=== PATIENT | male | born 1980 | race Caucasian/White ===

== ENCOUNTER 2017-11-15 16:22 | Inpatient (IN) | payer SELFPAY ==
[2017-11-15] MEDS ORDERED: CEFAZOLIN 1 GM/DEXTROSE/50 ML BAG IV ONE (16:27)
[2017-11-15] MEDS ORDERED: TDAP ADULT 0.5 ML INJ (BOOSTRIX) IM ONE (16:33)
[2017-11-15] MEDS ORDERED: IOPAMIDOL (ISOVUE 370) 100 ML BTL IV ONE (16:34)
[2017-11-15 16:40] LABS: PLATELET COUNT 327 10^3/uL (150-400)
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
[2017-11-15] MEDS ORDERED: BUPIVACAINE 0.5% 30 ML SDV ONE (16:56)
[2017-11-15] MEDS ORDERED: fentaNYL 100 MCG/2 ML INJ ONE ×2 (17:07→17:18)
[2017-11-15] MEDS ORDERED: KETAMINE 200 MG/20 ML VIAL ONE (17:08)
[2017-11-15] MEDS ORDERED: fentaNYL 100 MCG/2 ML INJ IVP ONE (17:09)
[2017-11-15] MEDS ORDERED: ceFAZolin 2 GM in NS 100 ML IV ONE (17:09)
[2017-11-15] MEDS ORDERED: NS 1,000 ML IV ONE (17:10)
[2017-11-15] MEDS ORDERED: MIDAZOLAM 2 MG/2 ML VIAL IVP ONE (17:11)
[2017-11-15] MEDS ORDERED: HYDROCODONE/APAP 5/325 TAB PO PRN ×2 (17:11→18:44)
[2017-11-15] MEDS ORDERED: MIDAZOLAM 2 MG/2 ML VIAL ONE (17:11)
[2017-11-15] MEDS ORDERED: ONDANSETRON 4 MG/2 ML VIAL IVP PRN (17:11)
[2017-11-15] MEDS ORDERED: NALOXONE HCL 0.4 MG/ML INJ IVP PRN ×2 (17:11→18:44)
[2017-11-15 17:13] LABS: INR 0.97 (0.83-1.16); PROTIME(PATIENT) 13.1 SEC (12.0-15.0)
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
[2017-11-15] MEDS ORDERED: PROPOFOL 200 MG/20 ML VIAL ONE ×2 (17:18)
[2017-11-15] MEDS ORDERED: LIDOCAINE 2% 5 ML SDV ONE (17:18)
[2017-11-15] MEDS ORDERED: ROCURONIUM 50 MG/5 ML VIAL ONE (17:18)
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
[2017-11-15] MEDS ORDERED: DEXAMETHASONE 4 MG/ML VIAL ONE (17:31)
[2017-11-15] MEDS ORDERED: HYDROmorphONE/DILAUDID 2 MG/ML INJ ONE (17:56)
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
[2017-11-15] MEDS ORDERED: SUGAMMADEX SODIUM 200 MG/2 ML VIAL IVP ONE (18:09)
[2017-11-15] MEDS ORDERED: KETOROLAC 30 MG/1 ML SDV ONE (18:10)
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
[2017-11-15] MEDS ORDERED: MEPERIDINE 25 MG/0.5 ML AMP IVP PRN (18:44)
[2017-11-15] MEDS ORDERED: ALBUTEROL 3 ML DEYVIAL IH PRN (18:44)
[2017-11-15] MEDS ORDERED: PROMETHAZINE HCL 25 MG/ML INJ IVP PRN (18:44)
[2017-11-15] MEDS ORDERED: oxyCODONE IR 5 MG TAB PO PRN (18:44)
[2017-11-15] MEDS ORDERED: fentaNYL 100 MCG/2 ML INJ IVP PRN (18:44)
[2017-11-15] MEDS ORDERED: DIAZEPAM 5 MG/ML 1 ML SYR IVP PRN (18:44)
[2017-11-15] MEDS ORDERED: HYDROmorphONE/DILAUDID 2 MG/ML INJ IVP PRN (18:44)
--- NOTE | 2017-11-15 18:45 | POSTANESTH ---
Post Anesthetic Evaluation Cardiovascular Status: Normal, Stable Respiratory Status: Normal, Stable Level of Consciousness/Mental Status: Can Participate in Eval Pain Control: Adequate, Prn Tx Ordered Nausea/Vomiting Control: Adequate, Prn Tx Ordered Complications Possibly Related to Anesthesia: None Noted
[2017-11-15] MEDS ORDERED: MEPERIDINE 25 MG/0.5 ML AMP ONE (18:52)
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
[2017-11-15] MEDS: KETOROLAC 15 MG/1 ML SDV IVP SCH ×2 (20:09→23:56)
[2017-11-15] MEDS: ERTAPENEM 1 GM in NS 100 ML IV SCH (20:10)
[2017-11-16 04:48] LABS: PLATELET COUNT 268 10^3/uL (150-400)
[2017-11-16] MEDS: KETOROLAC 15 MG/1 ML SDV IVP SCH ×3 (05:30→17:34)
--- NOTE | 2017-11-16 08:31 | TRAUMAPNT ---
Trauma Tertiary Progress Note New Findings: Complaining more of left shoulder. Suspect contusion/possible AC seperation Assessment/Plan: POD#1 PAD#1 11/16/2017 Assessment: Pain well controlled. Afebrile, WBC down /HCT stable, Irrigating wound vac working. C/o left shoulder pain Plan: Left shoulder x-ray series Continue wound vac and explore possibility of out patient wound vac care Will try to mobilize today Subjective: My shoulder pain became more noticable this morning Objective: Vital Signs Temp Pulse Resp BP Pulse Ox 36.9 C 92 18 140/97 H 97 11/16/17 04:00 11/16/17 04:00 11/16/17 04:00 11/16/17 04:00 11/16/17 04:00 Laboratory Results 11/16/17 04:35 11/15/17 11/16/17 11/17/17 05:59 05:59 05:59 Intake Total 3180 Output Total 400 1000 Balance 2780 -1000 PT 13.1 SEC (12.0-15.0) 11/15/17 16:30 INR 0.97 (0.83-1.16) 11/15/17 16:30 Physical Exam - Physical Exam General Appearance: WD/WN, alert, mild distress Neck: non-tender, full range of motion, supple, normal inspection Respiratory: chest non-tender, lungs clear, normal breath sounds Cardiac/Chest: regular rate, rhythm Abdomen: normal bowel sounds, non-tender, soft Male Genitalia: deferred Rectal: deferred Back: Normal inspection Skin: normal color, warm/dry Neuro/Psych: no motor/sensory deficits, alert, normal mood/affect, oriented x 3 Time Spent w/Patient (minutes): 25
[2017-11-16] MEDS: ERTAPENEM 1 GM in NS 100 ML IV SCH (09:10)
[2017-11-16] MEDS: ENOXAPARIN 40 MG/0.4 ML SYR SC SCH (09:14)
[2017-11-17] MEDS ORDERED: DIAZEPAM 5 MG TAB PO ONE (00:15)
[2017-11-17] MEDS: KETOROLAC 15 MG/1 ML SDV IVP SCH ×4 (00:18→18:05)
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
[2017-11-17] MEDS: ENOXAPARIN 40 MG/0.4 ML SYR SC SCH (09:37)
[2017-11-17] MEDS: ERTAPENEM 1 GM in NS 100 ML IV SCH (09:38)
--- NOTE | 2017-11-17 14:47 | ASMTCMCOM ---
CM Note CM Note Notes: OT/PT rec home, [employer] rec home/follow up call. Financial counseling met w pt today. Pt likely needs wound vac at d/c, case making machine operator/Karon Almonte alerted to start application. Unknown if pt will need IV antibiotics at d/c. Pt has no payer source for d/c needs. CM to follow. Date Signed: 11/17/2017 02:46 PM Electronically Signed By:CASS Rosas
--- NOTE | 2017-11-17 18:36 | TRAUMAPN ---
Trauma Progress Note Assessment/Plan: POD#1 PAD#1 11/16/2017 Assessment: Pain well controlled. Afebrile, WBC down /HCT stable, Irrigating wound vac working. C/o left shoulder pain Plan: Left shoulder x-ray series Continue wound vac and explore possibility of out patient wound vac care Will try to mobilize today POD#2 PAD#2 Assessment: Pain well controlled. Notes some discomfort in left shoulder and left lateral thigh due to contusions. Plan: Wound vac change to outpatient mode tomorrow by wound care team. Subjective: I've moved my bowels and passed gas Objective: Vital Signs Temp Pulse Resp BP Pulse Ox 36.7 C 87 15 132/65 H 96 11/17/17 16:00 11/17/17 16:00 11/17/17 16:00 11/17/17 16:00 11/17/17 16:00 Laboratory Results 11/17/17 04:15 11/17/17 04:15 11/16/17 11/17/17 11/18/17 05:59 05:59 05:59 Intake Total 3180 500 Output Total 400 1250 Balance 2780 -750 PT 13.1 SEC (12.0-15.0) 11/15/17 16:30 INR 0.97 (0.83-1.16) 11/15/17 16:30 - C-Spine Clearance Cervical Spine Cleared: Yes Provider who Cleared Cervical Spine: Dr. Mejia Physical Exam - Physical Exam General Appearance: WD/WN, alert, no apparent distress Neck: non-tender, full range of motion, supple Respiratory: chest non-tender, lungs clear, normal breath sounds Cardiac/Chest: regular rate, rhythm Abdomen: normal bowel sounds, non-tender, soft Male Genitalia: deferred Rectal: deferred Back: Normal inspection Skin: normal color, warm/dry Extremities: other (Contusion over left shoulder and left lateral thigh - stable ) Neuro/Psych: no motor/sensory deficits, alert, normal mood/affect, oriented x 3
[2017-11-18] MEDS: KETOROLAC 15 MG/1 ML SDV IVP SCH ×4 (01:30→17:35)
[2017-11-18] MEDS ORDERED: HYDROmorphONE/DILAUDID 1 MG/ML INJ IVP ONE (08:15)
[2017-11-18] MEDS ORDERED: LORazepam 2 MG/ML INJ IVP ONE (08:15)
[2017-11-18] MEDS: ERTAPENEM 1 GM in NS 100 ML IV SCH (10:03)
[2017-11-18] MEDS ORDERED: HYDROmorphONE/DILAUDID 1 MG/ML INJ ONE (10:20)
--- NOTE | 2017-11-18 11:45 | TRAUMAPN ---
Trauma Progress Note Assessment/Plan: POD#1 PAD#1 11/16/2017 Assessment: Pain well controlled. Afebrile, WBC down /HCT stable, Irrigating wound vac working. C/o left shoulder pain Plan: Left shoulder x-ray series Continue wound vac and explore possibility of out patient wound vac care Will try to mobilize today POD#2 PAD#2 Assessment: Pain well controlled. Notes some discomfort in left shoulder and left lateral thigh due to contusions. Plan: Wound vac change to outpatient mode tomorrow by wound care team. POD#3 PAD#3 Assessment: Wound vac changed with Dr. Mejia and wound vac team today. The subcutaneous tract is smaller. Left shoulder and left thigh contusions stable Plan: Continue wound vac as outpatient with follow up with Dr. Mejia on Thursday Subjective: My left shoulder and thigh were more stiff this AM but loosened up with walking Objective: Vital Signs Temp Pulse Resp BP Pulse Ox 36.9 C 81 15 129/77 H 96 11/18/17 07:26 11/18/17 07:26 11/18/17 07:26 11/18/17 07:26 11/18/17 07:26 Laboratory Results 11/17/17 04:15 11/17/17 04:15 11/17/17 11/18/17 11/19/17 05:59 05:59 05:59 Intake Total 500 Output Total 1250 250 Balance -750 -250 PT 13.1 SEC (12.0-15.0) 11/15/17 16:30 INR 0.97 (0.83-1.16) 11/15/17 16:30 - C-Spine Clearance Cervical Spine Cleared: Yes Provider who Cleared Cervical Spine: Dr. Mejia Physical Exam - Physical Exam General Appearance: WD/WN, alert, no apparent distress Neck: non-tender, full range of motion, supple Respiratory: chest non-tender, lungs clear, normal breath sounds Cardiac/Chest: regular rate, rhythm Abdomen: normal bowel sounds, non-tender, soft Male Genitalia: deferred Rectal: deferred Back: Normal inspection Skin: normal color, warm/dry, other (Wound vac replaced earlier today) Neuro/Psych: no motor/sensory deficits, alert, normal mood/affect, oriented x 3 Time Spent w/Patient (minutes): 15
--- NOTE | 2017-11-18 11:46 | WOCRNPDOC ---
WOCRArin Advanced Assessment Note - Skin Integrity Problem, Advanced Assess Right Upper Leg Surgical Wound/Incision Dressing Type: Black Vac Foam (kauffman foam x [address] Mejia ), Wound Vac Dressing Description: Clean/Dry, Intact Exudate Amount: Moderate Exudate Characteristic(s): Serosanguinous Integumentary Issue Intervention: Dressing Changed Buddy Wound Tissue: Swollen Buddy Wound Swelling: Moderate Wound Bed Constitution: Granulation Tissue (40%), Tunneling (9 oclock 9 cm toward the midline and 12 oclock 3.8 cm lateraly), Muscle, Subcutaneous Fat Wound Edges: Well Defined Site Odor: None Site Measurement - Head-to-Toe Length X Width X Depth (cm): 7x13x2 Skin Integrity Problem Comment: Veraflo d/c'd. Wound cleansed with ns and gauze after clipping buddy wound hair and applying skin prep. Tunnels explored and after conversation with Dr. Klein it was decided not to pack the 9 oclock tunnel fully in the hopes the distal portion wound close down. One piece of black simplace foam cut and placed in each tunnel. Then 4 more pieces were placed over wound bed. Totaling 6 pieces of medium black simplace. Vac was restarted at -125 mm Hg continuous suction without leaks. Patient tolerated proceedure well. Education on leak patching done at home. Yoselin HORTON in room for care. Dr. Zavala entered room at end of vac change.
--- NOTE | 2017-11-18 12:23 | ASMTCMCOM ---
CM Note CM Note Notes: CM spoke w/pt re; dc poc. Pt needs wound vac but does not have insurance (he is over income for Medicaid). CM called Kamla at [facility], pt will need to pay $2450.00 up front and then he will have a daily rate of $175.00/day. CM discussed this with pt and MD. Per MD may be able to do "wet to dry" dressings if he is unable to financially manage wound vac. Discussed with pt and he will go forward with wound vac therapy as it will yield the best healing outcome. He will put the up front cost on his credit card. Per Kamla at [facility] pt may qualify for discounted daily rate, pt to fill out hardship form. CM faxed all pertinent paperwork back to Kamla at [facility], they will call pt to discuss final charges prior to releasing wound vac. Pt has been transitioned to oral antibiotics, he will dc to his parents home upon dc. DC Plan: Home with parents and wound vac/ [facility] Date Signed: 11/18/2017 12:22 PM Electronically Signed By:Sharon Lambert RN
--- NOTE | 2017-11-18 12:25 | GDS ---
[f rep st] DISCHARGE SUMMARY DISCHARGE DIAGNOSES: 1. Wound, right anterolateral thigh secondary to a branch. 2. Contusion, left shoulder. 3. Contusion, left thigh. CONDITION ON DISCHARGE: Improved. DISPOSITION: Home. DIET RESTRICTION: As tolerated. MEDICATIONS: He will take Tylenol 1000 mg every 8 hours by the clock. He will take Motrin 200 mg every 6 hours by the clock. He will use 40 mg of unfractionated heparin on a subcutaneous daily basis. He will use Dilaudid 2 mg every 2-4 hours as needed for severe pain. He will use amoxicillin 875 mg twice a day. He will return to see Dr. Mejia on Thursday and wound VAC change will be arranged. HOSPITAL COURSE: The patient was admitted, taken to the operating room to remove the tree branch from his right leg. Wound VAC was placed. The wound VAC was replaced on Thursday. Dr. Mejia saw the wound VAC change personally. The subcutaneous undermining is dramatically decreased. Granulation tissue is present. More edema has to come out of the tissue before the wound can undergo a delayed primary closure. This will be determined by Dr. Mejia. During the course of his hospitalization, he complained of pain in his left shoulder. X-rays were negative. It was presumed it was just a contusion. He also complained of pain in his left lateral thigh which was also felt to be a contusion. That is continuing to improve and he will use a heating pad on both sites for 45 minutes 4 times a day. /[id number]/MODL MTDD
[2017-11-18] MEDS: ENOXAPARIN 40 MG/0.4 ML SYR SC SCH (14:25)
[2017-11-18 15:35] VITALS: BP 152/94
--- NOTE | 2017-11-18 16:45 | ASMTCMCOM ---
CM Note CM Note Notes: Received call from Kamla at [facility], wound vac approved and pt received it at no cost under their [employer]oko program. CM delivered wound vac to pt and notified RN. Paperwork signed and faxed back to [facility]. Pt will f/u with Dr Mejia on Thursday for wound vac dressing change. DC Plan: Home with wound vac Date Signed: 11/18/2017 04:44 PM Electronically Signed By:Sharon Lambert RN
--- NOTE | 2017-11-18 16:46 | ASMTLACE ---
LACE Length of stay for Answers: 3 days current admission Acuity / Level of Answers: Yes Care: Did the patient have an inpatient admission? Score: 6 Date Signed: 11/18/2017 04:45 PM Electronically Signed By:Sharon Lambert RN
== END 2017-11-18 19:39 | disposition home or self-care (01) | DRG 914 ==
LOC: FSGY 16:44 → F3N 19:38
PROVIDERS: ADMIT Surgery; ATTEND Surgery
PROC: 2W18X6Z Compression of Right Upper Extremity using Pressure Dressing (ICD-10-PCS; principal; 2017-11-15 17:15)
PROC: 0JCL0ZZ Extirpation of Matter from Right Upper Leg Subcutaneous Tissue and Fascia, Open Approach (ICD-10-PCS; principal; 2017-11-15 17:15)
DX: S71.141A Puncture wound with foreign body, right thigh, initial encounter (principal); S76.891A Other injury of other specified muscles, fascia and tendons at thigh level, right thigh, initial encounter; S70.12XA Contusion of left thigh, initial encounter; S40.012A Contusion of left shoulder, initial encounter; W45.8XXA Other foreign body or object entering through skin, initial encounter; V86.56XA Driver of dirt bike or motor/cross bike injured in nontraffic accident, initial encounter; Y92.838 Other recreation area as the place of occurrence of the external cause; Z18.89 Other specified retained foreign body fragments
CPT/HCPCS: 82947-QW; 92523-GN; 96374; 97110-GP; 97161-GP; 97165-GO; 97530-GO; 97535-GO; G0480; J0690; J1100; J1170; J1335; J1650; J1885; J2060; J2175; J2250; J2704; J3010; Q9967